=== PATIENT | female | born 1980 | race Caucasian/White ===

== ENCOUNTER 2022-02-15 07:30 | Day surgery (SDC) | payer OTHER ==
[~2022-02-15] VITALS: Ht 160 cm; Wt 50.6 kg
[2022-02-15] MEDS ORDERED: MULTI VITAMINS1 TAB PO (08:03)
[2022-02-15 09:10] VITALS: BP 108/73; PULSE 68; TEMP 97.8
[2022-02-15 09:25] VITALS: BP 116/81; PULSE 67
[2022-02-15 15:54] VITALS: BP 117/89; PULSE 89; TEMP 97.1
== END 2022-02-15 10:15 | disposition home or self-care (01) ==
LOC: SDCO 07:30
DX: K50.00 Crohn's disease of small intestine without complications (principal); K63.3 Ulcer of intestine; K64.0 First degree hemorrhoids; K62.89 Other specified diseases of anus and rectum; K64.4 Residual hemorrhoidal skin tags
CPT/HCPCS: J2704; J3010; J7030